=== PATIENT | female | born 1985 | race American Indian/Alaskan Native ===

== ENCOUNTER 2017-12-27 13:34 | Emergency (ER) | payer OTHER ==
[2017-12-27 14:25] VITALS: BP 128/49
[2017-12-27 14:49] LABS: Hematocrit 34.2 % (30.3-42.9); Hemoglobin 10.9 gm/dl (10.1-14.3); Mean Corpuscular HGB Conc 32 % (30-34); Mean Corpuscular Volume 76 fl (79-97); Platelet Count 134 K/mm3 (140-440); Red Blood Count 4.53 M/mm3 (3.65-5.03); Red Cell Distribution Width 16.1 % (13.2-15.2)
[2017-12-27 14:52] LABS: Mean Corpuscular Hemoglobin 24 pg (28-32)
[2017-12-27 16:25] LABS: HCG Qualitative,Urine Negative (Negative)
== END 2017-12-27 20:57 | disposition left against medical advice (07) ==
LOC: ED 13:34
DX: Z04.3 Encounter for examination and observation following other accident (principal); Z53.21 Procedure and treatment not carried out due to patient leaving prior to being seen by health care provider
CPT/HCPCS: 36415; 81025; 85027

== ENCOUNTER 2018-11-05 17:17 | Emergency (ER) | payer MEDICAID ==
[2018-11-05 17:24] VITALS: BP 108/74
[2018-11-05 17:46] LABS: HCG Qualitative,Urine Positive (Negative)
[2018-11-05 17:50] LABS: Bilirubin,Urine NEG (Negative); Blood,Urine NEG (Negative); Color,Urine Yellow (Yellow); Mucus,Urine 1+ /HPF; Protein,Urine <15 mg/dL mg/dL (Negative)
[2018-11-05 18:07] LABS: Hematocrit 39.5 % (30.3-42.9); Hemoglobin 13.3 gm/dl (10.1-14.3); Mean Corpuscular HGB Conc 34 % (30-34); Mean Corpuscular Volume 80 fl (79-97); Platelet Count 141 K/mm3 (140-440); Red Blood Count 4.96 M/mm3 (3.65-5.03); Red Cell Distribution Width 15.9 % (13.2-15.2)
[2018-11-05 18:19] LABS: BUN/Creatinine Ratio 10; Blood Urea Nitrogen 6 mg/dL (7-17); Calcium 9.2 mg/dL (8.4-10.2); Hemolysis Index 2
[2018-11-05] MEDS ORDERED: NACL 0.9% 1000 ML 1,000 ML IV ONE (18:35)
[2018-11-05] MEDS ORDERED: REGLAN IV ONE (18:35)
--- NOTE | 2018-11-05 18:41 | Emergency Department Report ---
HPI - General Chief Complaint: Nausea/Vomiting/Diarrhea Time Seen by Provider: 11/05/18 18:34 - HPI HPI: Room 33 The patient is a 33-year-old female presenting with a chief complaint of lower abdominal pain nausea and vomiting. Patient states she is but is not certain how far along she is. The patient states her last cycle occurred 09/15/2018. The patient states she has seen an TEACHER PHYSICALLY IMPAIRED but no ultrasound as yet been performed. The patient states for the past 3 weeks she's had low abdominal pain described as a pressure that has been intermittent. Patient also admits to intractable nausea and vomiting for the past 3 weeks. Patient denies vaginal bleeding but admits to subjective fever. Patient denies dysuria. The patient states drinking hot water helps with her abdominal pain Location: Gastrointestinal system, pelvis Duration: [See above] Quality: Nausea, pressure Severity: Moderate Modifying factors: [see above] Context: [see above] Mode of transportation: [not driving] ED Past Medical Hx - Past Medical History Previous Medical History?: No - Surgical History Past Surgical History?: No - Family History Family history: no significant - Social History Smoking Status: Never Smoker Substance Use Type: None (denies illicit drug use), Alcohol (occasionally prior to ) - Medications Home Medications: Home Medications Medication Instructions Recorded Confirmed Last Taken Type Metoclopramide [Reglan] 10 mg PO QID PRN #30 tab 11/05/18 Unknown Rx ED Review of Systems ROS: Stated complaint: UPSET STOMACH Other details as noted in HPI Constitutional: chills Eyes: denies: eye pain ENT: denies: throat pain Respiratory: no symptoms reported Cardiovascular: denies: chest pain Endocrine: no symptoms reported Gastrointestinal: abdominal pain, nausea, vomiting Genitourinary: denies: dysuria Musculoskeletal: denies: back pain Neurological: denies: headache Physical Exam - Physical Exam Vital Signs: Vital Signs 11/05/18 17:21 Temperature 98.8 F Pulse Rate 68 Respiratory 18 Rate Blood Pressure 108/74 O2 Sat by Pulse 99 Oximetry Physical Exam: GENERAL: The patient is well-developed well-nourished female sitting on stretcher not appearing to be in acute distress. [] HEENT: Normocephalic. Atraumatic. Extraocular motions are intact. Patient has moist mucous membranes. NECK: Supple. Trachea midline CHEST/LUNGS: Clear to auscultation. There is no respiratory distress noted. HEART/CARDIOVASCULAR: Regular. There is no tachycardia. There is no gallop rub or murmur. ABDOMEN: Abdomen is soft, with mild soreness to palpation in the midepigastric, left lower quadrant, superpubic region and right lower quadrant. There is no rebound or guarding. Patient has normal bowel sounds. There is no abdominal distention. SKIN: There is no rash. There is no edema. There is no diaphoresis. NEURO: The patient is awake, alert, and oriented. The patient is cooperative. The patient has normal speech MUSCULOSKELETAL: There is no evidence of acute injury. ED Course Vital Signs 11/05/18 17:21 Temperature 98.8 F Pulse Rate 68 Respiratory 18 Rate Blood Pressure 108/74 O2 Sat by Pulse 99 Oximetry - Reevaluation(s) Reevaluation #1: 11/05/18 20:57 Patient tolerating po ED Medical Decision Making - Lab Data Result diagrams: 11/05/18 17:44 11/05/18 17:44 Laboratory Tests 11/05/18 11/05/18 11/05/18 17:30 17:44 17:44 WBC 6.7 RBC 4.96 Hgb 13.3 Hct 39.5 MCV 80 MCH 27 L MCHC 34 RDW 15.9 H Plt Count 141 Sodium 135 L Potassium 3.8 Chloride 101.8 Carbon Dioxide 22 Anion Gap 15 BUN 6 L Creatinine 0.6 L Estimated GFR > 60 BUN/Creatinine Ratio 10 Glucose 86 Calcium 9.2 Total Bilirubin Direct Bilirubin Indirect Bilirubin AST ALT Alkaline Phosphatase Total Protein Albumin Albumin/Globulin Ratio Lipase HCG, Quant Urine Color Yellow Urine Turbidity Clear Urine pH 6.0 Ur Specific [place] 1.024 Urine Protein <15 mg/dl Urine Glucose (UA) Neg Urine Ketones 20 Urine Blood Neg Urine Nitrite Neg Ur Reducing Substances Not Reportable Urine Bilirubin Neg Urine Ictotest Not Reportable Urine Urobilinogen 2.0 Ur Leukocyte Esterase Neg Urine WBC (Auto) 1.0 Urine RBC (Auto) 6.0 U Epithel Cells (Auto) 4.0 Urine Mucus 1+ Urine HCG, Qual Positive A 11/05/18 11/05/18 17:44 17:44 WBC RBC Hgb Hct MCV MCH MCHC RDW Plt Count Sodium Potassium Chloride Carbon Dioxide Anion Gap BUN Creatinine Estimated GFR BUN/Creatinine Ratio Glucose Calcium Total Bilirubin 0.20 Direct Bilirubin < 0.2 Indirect Bilirubin 0.0 AST 22 ALT 24 Alkaline Phosphatase 80 Total Protein 8.1 Albumin 4.1 Albumin/Globulin Ratio 1.0 Lipase 25 HCG, Quant [id number] H Urine Color Urine Turbidity Urine pH Ur Specific [place] Urine Protein Urine Glucose (UA) Urine Ketones Urine Blood Urine Nitrite Ur Reducing Substances Urine Bilirubin Urine Ictotest Urine Urobilinogen Ur Leukocyte Esterase Urine WBC (Auto) Urine RBC (Auto) U Epithel Cells (Auto) Urine Mucus Urine HCG, Qual - Radiology Data Radiology results: report reviewed (pelvic ultrasound), image reviewed (pelvic ultrasound) [facility] [address] [place] [address] Ultrasound Report Signed Patient: MINAL MORRIS V MR#: [id number] : 1985 Acct:[id number] Age/Sex: 33 / F ADM Date: 11/05/18 Loc: ED Attending Dr: Ordering Physician: TORO HUITRON MD Date of Service: 11/05/18 Procedure(s): US OB transvaginal Accession Number(s): [id number] cc: TORO HUITRON MD FINAL REPORT EXAM: US OB TRANSVAGINAL HISTORY: , lower abdominal pain TECHNIQUE: Transvaginal grayscale, color flow and M-mode imaging of the pelvis was performed. Comparison: Transabdominal study also performed today. FINDINGS: The cervix is closed and unremarkable in appearance. There is demonstration of an intrauterine gestational sac with a yolk sac and pole. Estimated gestational age by measurements of crown-rump length is 7 weeks 5 days. heart rate is measured at 160 beats per minute by M-mode imaging. There is a small subchorionic collection that likely represents a subchorionic hemorrhage. No measurements are provided. The right ovary measures 4 centimeters x 2.7 centimeters x 3.4 centimeters and is unremarkable in appearance. The left ovary is not visualized. No free fluid is demonstrated in the pelvis. IMPRESSION: 1. Demonstration of a single living intrauterine gestation with estimated gestational age of 7 weeks 5 days by measurement of crown-rump length. 2. Probable small subchorionic hemorrhage. 3. The left ovary is not visualized. Transcribed By: ED Dictated By: RAFAEL WOODWARD MD Electronically Authenticated By: RAFAEL WOODWARD MD Signed Date/Time: 11/05/182017 DD/ 20 TD/TT: 11/05/182020 - Differential Diagnosis hyperemesis gravidarum, ectopic , UTI, round ligament pain Critical care attestation.: If time is entered above; I have spent that time in minutes in the direct care of this critically ill patient, excluding procedure time. ED Disposition Clinical Impression: Hyperemesis gravidarum, Subchorionic hemorrhage Disposition: TO HOME OR SELFCARE Is pt being admited?: No Does the pt Need Aspirin: No Condition: Stable Instructions: Hyperemesis Gravidarum (ED) Additional Instructions: Return to the emergency department immediately should you develop worsening symptoms, fever, inability to tolerate food or liquid or any other concerns. Prescriptions: Metoclopramide [Reglan] 10 mg PO QID PRN #30 tab PRN Reason: Nausea Referrals: ИВАН GARCIA MD [Primary Care Provider] - 3-5 Days your, TEACHER PHYSICALLY IMPAIRED [Other] - 3-5 Days Time of Disposition: 20:54
[2018-11-05 18:54] LABS: Alanine Aminotransferase 24 units/L (7-56); Albumin 4.1 g/dL (3.9-5)
[2018-11-05 18:57] LABS: Bilirubin,Direct < 0.2 mg/dL (0-0.2)
--- NOTE | 2018-11-05 20:15 | Ultrasound Report ---
FINAL REPORT EXAM: US OB <= 14 WEEKS FETUS HISTORY: , lower abdominal pain TECHNIQUE: Transabdominal grayscale and color-flow imaging of the pelvis was performed. Comparison: Transvaginal study also performed today FINDINGS: The uterus measures 9.2 centimeters x 7 centimeters by 8.8 centimeters in size. There is demonstration of an intrauterine gestational sac with pole. The ovaries are not visualized. No free fluid is demonstrated in the pelvis. IMPRESSION: 1. Demonstration of an intrauterine gestational sac with pole. Please see report of transvaginal study also performed today.
--- NOTE | 2018-11-05 20:18 | Ultrasound Report ---
FINAL REPORT EXAM: US OB TRANSVAGINAL HISTORY: , lower abdominal pain TECHNIQUE: Transvaginal grayscale, color flow and M-mode imaging of the pelvis was performed. Comparison: Transabdominal study also performed today. FINDINGS: The cervix is closed and unremarkable in appearance. There is demonstration of an intrauterine gestational sac with a yolk sac and pole. Estimated g estational age by measurements of crown-rump length is 7 weeks 5 days. heart rate is measured at 160 beats per minute by M-mode imaging. There is a small subchorionic collection that likely represents a subchorionic hemorrhage. No measure ments are provided. The right ovary measures 4 centimeters x 2.7 centimeters x 3.4 centimeters and is unremarkable in [place]. The left ovary is not visualized. No free fluid is demonstrated in the pelvis. IMPRESSION: 1. Demonstration of a single living intrauterine gestation with estimated gestational age of 7 weeks 5 days by measurement of crown-rump length. 2. Probable small subchorionic hemorrhage. 3. The left ovary is not visualized.
== END 2018-11-05 21:07 | disposition home or self-care (01) ==
LOC: ED 17:17
DX: O21.0 Mild hyperemesis gravidarum (principal); O20.8 Other hemorrhage in early pregnancy; Z3A.01 Less than 8 weeks gestation of pregnancy
CPT/HCPCS: 36415; 76801; 76817; 80048; 80076; 81001; 81025; 83690; 84702; 85027; 96361; 96374; 99284; J2765; J7030

== ENCOUNTER 2018-11-09 08:32 | Emergency (ER) | payer MEDICAID ==
[2018-11-09] MEDS ORDERED: ZOFRAN IV ONE ×2 (09:42→11:33)
[2018-11-09] MEDS ORDERED: D5NS 1,000 ML IV SCH (10:00)
[2018-11-09 10:01] LABS: Basophils # (Auto) 0.1 K/mm3 (0.0-0.1); Basophils % (Auto) 0.9 % (0.0-1.8); Eosinophils # (Auto) 0.1 K/mm3 (0.0-0.4); Eosinophils % (Auto) 2.2 % (0.0-4.3); Hematocrit 38.7 % (30.3-42.9); Hemoglobin 12.8 gm/dl (10.1-14.3); Lymphocytes # (Auto) 1.5 K/mm3 (1.2-5.4); Lymphocytes % (Auto) 21.8 % (13.4-35.0); Mean Corpuscular HGB Conc 33 % (30-34); Mean Corpuscular Volume 81 fl (79-97); Monocytes # (Auto) 0.4 K/mm3 (0.0-0.8); Monocytes % (Auto) 5.8 % (0.0-7.3); Platelet Count 136 K/mm3 (140-440); Red Blood Count 4.77 M/mm3 (3.65-5.03)
--- NOTE | 2018-11-09 10:15 | Emergency Department Report ---
ED N/V/D HPI - General Chief complaint: Nausea/Vomiting/Diarrhea Stated complaint: SICK Time Seen by Provider: 11/09/18 09:23 Source: patient Mode of arrival: Ambulatory Limitations: No Limitations - History of Present Illness Initial comments: 33-year-old female currently 8 weeks presents to the Hospital complaining of persistent nausea and vomiting. This is her sixth . She was seen here 4 days ago with similar symptoms. On October 2018 showing a single IUP 7 weeks 5 days with a small subchorionic hemorrhage. She was prescribed Reglan when necessary. Despite taking this medication should continue to have nausea and vomiting. She complains of generalized abdominal pain rated 10/10 intensity which is aching, constant, worse with palpation. No fever, melena hematochezia, hematemesis. Patient has history of gallstone rem oval but denies cholecystectomy. Patient does have a HEARING AID ASSISTANT cannot recall the name of the group. - Related Data Previous Rx's Medication Instructions Recorded Last Taken Type Metoclopramide [Reglan] 10 mg PO QID PRN #30 tab 11/05/18 Unknown Rx Ondansetron [Zofran Odt] 4 mg PO Q8HR PRN #20 tab.rapdis 11/09/18 Unknown Rx Allergies Allergy/AdvReac Type Severity Reaction Status Date / Time No Known Allergies Allergy Verified 11/05/18 17:21 ED Review of Systems ROS: Stated complaint: SICK Other details as noted in HPI Comment: All other systems reviewed and negative ED Past Medical Hx - Past Medical History Previous Medical History?: Yes Additional medical history: Child x 5 - Surgical History Past Surgical History?: Yes Additional Surgical History: Gallstone removal - Social History Smoking Status: Never Smoker Substance Use Type: Alcohol, Prescribed - Medications Home Medications: Home Medications Medication Instructions Recorded Confirmed Last Taken Type Metoclopramide [Reglan] 10 mg PO QID PRN #30 tab 11/05/18 Unknown Rx Ondansetron [Zofran Odt] 4 mg PO Q8HR PRN #20 tab.rapdis 11/09/18 Unknown Rx ED Physical Exam - General Limitations: No Limitations - Other Other exam information: General: No limitations, patient is alert in no acute distress Head exam: Atraumatic, normocephalic Eyes exam: Normal appearance ENT: Moist mucous membrane Neck exam: Normal inspection, full range of motion, no meningismus nontender Respiratory exam: Clear to auscultation bilateral, no wheezes, rales, crackles Cardiovascular: Normal rate and rhythm, normal heart sounds Abdomen: Soft, nondistended, generalized abdominal tenderness to palpation, with normal bowel sounds, no rebound, or guarding. Patient noted to be spitting into a vomit bag without actual vomiting. Extremity: Full range of motion normal inspection no deformity Back: Normal Inspection, full range of motion, no tenderness Neurologic: Alert, oriented x3, cranial nerves intact, no motor or sensory deficit Psychiatric: normal affect, normal mood Skin: Warm, dry, intact ED Course Vital Signs 11/09/18 11/09/18 08:34 12:03 Temperature 98.9 F Pulse Rate 81 Respiratory 18 18 Rate Blood Pressure 124/39 O2 Sat by Pulse 99 Oximetry ED Medical Decision Making - Lab Data Result diagrams: 11/09/18 09:50 11/09/18 09:50 Lab Results 11/09/18 11/09/18 11/09/18 Range/Units 09:50 09:50 09:50 WBC 6.7 (4.5-11.0) K/mm3 RBC 4.77 (3.65-5.03) M/mm3 Hgb 12.8 (10.1-14.3) gm/dl Hct 38.7 (30.3-42.9) % MCV 81 (79-97) fl MCH 27 L (28-32) pg MCHC 33 (30-34) % RDW 16.0 H (13.2-15.2) % Plt Count 136 L (140-440) K/mm3 Lymph % (Auto) 21.8 (13.4-35.0) % [place] % (Auto) 5.8 (0.0-7.3) % Eos % (Auto) 2.2 (0.0-4.3) % Baso % (Auto) 0.9 (0.0-1.8) % Lymph # 1.5 (1.2-5.4) K/mm3 [place] # 0.4 (0.0-0.8) K/mm3 Eos # 0.1 (0.0-0.4) K/mm3 Baso # 0.1 (0.0-0.1) K/mm3 Seg Neutrophils % 69.3 (40.0-70.0) % Seg Neutrophils # 4.6 (1.8-7.7) K/mm3 Sodium 136 L (137-145) mmol/L Potassium 3.6 (3.6-5.0) mmol/L Chloride 100.0 (98-107) mmol/L Carbon Dioxide 21 L (22-30) mmol/L Anion Gap 19 mmol/L BUN 6 L (7-17) mg/dL Creatinine 0.5 L (0.7-1.2) mg/dL Estimated GFR > 60 ml/min BUN/Creatinine Ratio 12 % Glucose 76 (65-100) mg/dL Calcium 8.8 (8.4-10.2) mg/dL Total Bilirubin 0.50 (0.1-1.2) mg/dL AST 18 (5-40) units/L ALT 20 (7-56) units/L Alkaline Phosphatase 73 (35-129) units/L Total Protein 7.3 (6.3-8.2) g/dL Albumin 3.8 L (3.9-5) g/dL Albumin/Globulin Ratio 1.1 % Lipase 30 (13-60) units/L Urine Color (Yellow) Urine Turbidity (Clear) Urine pH (5.0-7.0) Ur Specific [place] (1.003-1.030) Urine Protein (Negative) mg/dL Urine Glucose (UA) (Negative) mg/dL Urine Ketones (Negative) mg/dL Urine Blood (Negative) Urine Nitrite (Negative) Urine Bilirubin (Negative) Urine Urobilinogen (<2.0) mg/dL Ur Leukocyte Esterase (Negative) Urine WBC (Auto) (0.0-6.0) /HPF Urine RBC (Auto) (0.0-6.0) /HPF U Epithel Cells (Auto) (0-13.0) /HPF Urine Bacteria (Auto) (Negative) /HPF Urine Mucus /HPF 11/09/18 Range/Units 11:13 WBC (4.5-11.0) K/mm3 RBC (3.65-5.03) M/mm3 Hgb (10.1-14.3) gm/dl Hct (30.3-42.9) % MCV (79-97) fl MCH (28-32) pg MCHC (30-34) % RDW (13.2-15.2) % Plt Count (140-440) K/mm3 Lymph % (Auto) (13.4-35.0) % [place] % (Auto) (0.0-7.3) % Eos % (Auto) (0.0-4.3) % Baso % (Auto) (0.0-1.8) % Lymph # (1.2-5.4) K/mm3 [place] # (0.0-0.8) K/mm3 Eos # (0.0-0.4) K/mm3 Baso # (0.0-0.1) K/mm3 Seg Neutrophils % (40.0-70.0) % Seg Neutrophils # (1.8-7.7) K/mm3 Sodium (137-145) mmol/L Potassium (3.6-5.0) mmol/L Chloride (98-107) mmol/L Carbon Dioxide (22-30) mmol/L Anion Gap mmol/L BUN (7-17) mg/dL Creatinine (0.7-1.2) mg/dL Estimated GFR ml/min BUN/Creatinine Ratio % Glucose (65-100) mg/dL Calcium (8.4-10.2) mg/dL Total Bilirubin (0.1-1.2) mg/dL AST (5-40) units/L ALT (7-56) units/L Alkaline Phosphatase (35-129) units/L Total Protein (6.3-8.2) g/dL Albumin (3.9-5) g/dL Albumin/Globulin Ratio % Lipase (13-60) units/L Urine Color Yellow (Yellow) Urine Turbidity Clear (Clear) Urine pH 6.0 (5.0-7.0) Ur Specific [place] 1.026 (1.003-1.030) Urine Protein <15 mg/dl (Negative) mg/dL Urine Glucose (UA) >=500 (Negative) mg/dL Urine Ketones 80 (Negative) mg/dL Urine Blood Neg (Negative) Urine Nitrite Neg (Negative) Urine Bilirubin Neg (Negative) Urine Urobilinogen < 2.0 (<2.0) mg/dL Ur Leukocyte Esterase Neg (Negative) Urine WBC (Auto) 3.0 (0.0-6.0) /HPF Urine RBC (Auto) 3.0 (0.0-6.0) /HPF U Epithel Cells (Auto) 4.0 (0-13.0) /HPF Urine Bacteria (Auto) 1+ (Negative) /HPF Urine Mucus 1+ /HPF - Medical Decision Making Patient did have urine output after 1 L D5NS. UA reveals dehydration with ketosis without signs of infection. Otherwise unremarkable. Patient denies vaginal bleeding. She is tolerating by mouth intake after treatment with Zofran. She'll be discharged home with symptomatic treatment and encouraged to follow-up with her HEARING AID ASSISTANT. She was offered additional IV fluid but declined and prefers to be discharged with meds - Differential Diagnosis gastroenteritis, hyperemesis, UTI, infection Critical Care Time: No Critical care attestation.: If time is entered above; I have spent that time in minutes in the direct care of this critically ill patient, excluding procedure time. ED Disposition Clinical Impression: Vomiting during Disposition: DC-01 TO HOME OR SELFCARE Is pt being admited?: No Does the pt Need Aspirin: No Condition: Stable Instructions: Hyperemesis Gravidarum (ED) Additional Instructions: Take the medication as prescribed. Take Tylenol as needed for pain. Follow up with your doctor. Return if symptoms worsen as indicated by your discharge instructions Prescriptions: Ondansetron [Zofran Odt] 4 mg PO Q8HR PRN #20 tab.rapdis PRN Reason: Nausea And Vomiting Referrals: your, hop worker MD [Other] - 3-5 Days Time of Disposition: 12:37
[2018-11-09 10:23] LABS: Alanine Aminotransferase 20 units/L (7-56); Albumin 3.8 g/dL (3.9-5); BUN/Creatinine Ratio 12; Blood Urea Nitrogen 6 mg/dL (7-17); Calcium 8.8 mg/dL (8.4-10.2); Hemolysis Index 1
[2018-11-09] MEDS ORDERED: TYLENOL PO ONE (11:33)
[2018-11-09 11:45] LABS: Bacteria,Urine 1+ /HPF (Negative); Bilirubin,Urine NEG (Negative); Blood,Urine NEG (Negative); Color,Urine Yellow (Yellow); Mucus,Urine 1+ /HPF; Protein,Urine <15 mg/dL mg/dL (Negative); Urobilinogen,Urine < 2.0 mg/dL (<2.0)
[2018-11-10 13:43] VITALS: BP 124/39
== END 2018-11-09 13:13 | disposition home or self-care (01) ==
LOC: ED 08:32
DX: O21.9 Vomiting of pregnancy, unspecified (principal); Z3A.01 Less than 8 weeks gestation of pregnancy; E86.0 Dehydration
CPT/HCPCS: 36415; 80053; 81001; 83690; 85025; 96361; 96374; 96376; 99283; J2405; J7042

== ENCOUNTER 2018-11-15 15:45 | Emergency (ER) | payer MEDICAID ==
[2018-11-15] MEDS ORDERED: NACL 0.9% 1000 ML 1,000 ML IV ONE (16:19)
[2018-11-15] MEDS ORDERED: ZOFRAN IV ONE (16:21)
[2018-11-15] MEDS ORDERED: SUBLIMAZE IV ONE (16:36)
[2018-11-15 16:40] LABS: Basophils % (Auto) 0.4 % (0.0-1.8); Eosinophils # (Auto) 0.1 K/mm3 (0.0-0.4); Hematocrit 38.3 % (30.3-42.9); Hemoglobin 12.8 gm/dl (10.1-14.3); Lymphocytes # (Auto) 2.1 K/mm3 (1.2-5.4); Lymphocytes % (Auto) 29.6 % (13.4-35.0); Mean Corpuscular HGB Conc 33 % (30-34); Mean Corpuscular Volume 81 fl (79-97); Monocytes # (Auto) 0.4 K/mm3 (0.0-0.8); Monocytes % (Auto) 6.3 % (0.0-7.3); Platelet Count 145 K/mm3 (140-440); Red Blood Count 4.71 M/mm3 (3.65-5.03); Red Cell Distribution Width 15.5 % (13.2-15.2)
--- NOTE | 2018-11-15 16:44 | Emergency Department Report ---
Blank Doc - Documentation Documentation: 33 y o female presents presents with abd pain with n/v at approx 10 we eks gestation. abd started 3 days ago, no vag bleed LABS ordered\ NS U/S completed at last visit here, wnl
[2018-11-15 16:52] LABS: BUN/Creatinine Ratio 13; Blood Urea Nitrogen 5 mg/dL (7-17); Calcium 9.1 mg/dL (8.4-10.2); Hemolysis Index 0
--- NOTE | 2018-11-15 18:42 | Ultrasound Report ---
FINAL REPORT EXAM: TRANSVAGINAL US OBSTETRIC HISTORY: VAG SPOTTING TECHNIQUE: Ultrasound pelvis transabdominal and transvaginal PRIORS: None. FINDINGS: There is gestational sac within the uterus. There is pole present crown-rump 5 centimeters merlin esponding to estimated gestational age 9 weeks 1 day Estimated date of delivery June 19, 2019 cardiac activity present heart rate is 166 beats per minute 0.3 x 1.1 x 0.0 centimeter hypoechoic focus seen adjacent to the gestational sac consistent with a sm all subchorionic hemorrhage Right ovary 5.0 x 1.9 x 4.5 centimeters Left ovary is 3.4 x 1.5 x 2.2 centimeters Note is made of a 2.9 centimeter right ovarian cyst No free fluid seen in the cul-de-sac IMPRESSION: Single live intrauterine gestation estimated at 9 weeks 1 days with a small subchorionic hemorrhage
--- NOTE | 2018-11-15 18:51 | Ultrasound Report ---
FINAL REPORT EXAM: OB US < 14 WKS SINGLE FETUS HISTORY: VAG BLEEDING TECHNIQUE: PRIORS: None. FINDINGS: There is gestational sac within the uterus. There is pole present crown-rump 5 centimeters merlin esponding to estimated gestational age 9 weeks 1 day Estimated date of delivery June 19, 2019 cardiac activity present heart rate is 166 beats per minute 0.3 x 1.1 x 0.0 centimeter hypoechoic focus seen adjacent to the gestational sac consistent with a sm all subchorionic hemorrhage Right ovary 5.0 x 1.9 x 4.5 centimeters Left ovary is 3.4 x 1.5 x 2.2 centimeters Note is made of a 2.9 centimeter right ovarian cyst No free fluid seen in the cul-de-sac IMPRESSION: Single live intrauterine gestation estimated at 9 weeks 1 days with a small subchorionic hemorrhage
--- NOTE | 2018-11-15 19:41 | Emergency Department Report ---
ED General Adult HPI - General Chief complaint: Abdominal Pain Stated complaint: ABD/BODY PAIN/ 10WKS PREG Time Seen by Provider: 11/15/18 16:16 Source: patient Mode of arrival: Ambulatory Limitations: No Limitations - History of Present Illness Initial comments: Patient is a 32-year-old female who presents with lower abdominal pain nausea vomiting. Patient symptoms have been going on for the last 2 days. She says her abdominal pain is a 5 out 10 as a sore type of pain vomiting makes it worse and nothing makes it better. Patient denies having any vaginal bleeding or any vaginal discharge. Severity scale (0 -10): 3 - Related Data Previous Rx's Medication Instructions Recorded Last Taken Type Metoclopramide [Reglan] 10 mg PO QID PRN #30 tab 11/05/18 Unknown Rx Ondansetron [Zofran Odt] 4 mg PO Q8HR PRN #20 tab.rapdis 11/09/18 Unknown Rx Metoclopramide [Reglan] 10 mg PO TID PRN #21 tab 11/15/18 Unknown Rx diphenhydrAMINE [Benadryl CAP] 50 mg PO QHS PRN #30 capsule 11/15/18 Unknown Rx Allergies Allergy/AdvReac Type Severity Reaction Status Date / Time No Known Allergies Allergy Verified 11/15/18 16:16 ED Review of Systems ROS: Stated complaint: ABD/BODY PAIN/ 10WKS PREG Other details as noted in HPI Constitutional: denies: chills, fever Eyes: denies: eye pain, eye discharge, vision change ENT: denies: ear pain, throat pain Respiratory: denies: cough, shortness of breath, wheezing Cardiovascular: denies: chest pain, palpitations Endocrine: no symptoms reported Gastrointestinal: abdominal pain, nausea, vomiting. denies: diarrhea Genitourinary: denies: urgency, dysuria, discharge Musculoskeletal: denies: back pain, joint swelling, arthralgia Skin: denies: rash, lesions Neurological: denies: headache, weakness, paresthesias Psychiatric: denies: anxiety, depression Hematological/Lymphatic: denies: easy bleeding, easy bruising ED Past Medical Hx - Past Medical History Previous Medical History?: No Additional medical history: Child x 5 - Surgical History Past Surgical History?: Yes Additional Surgical History: Gallstone removal - Social History Smoking Status: Never Smoker - Medications Home Medications: Home Medications Medication Instructions Recorded Confirmed Last Taken Type Metoclopramide [Reglan] 10 mg PO QID PRN #30 tab 11/05/18 Unknown Rx Ondansetron [Zofran Odt] 4 mg PO Q8HR PRN #20 tab.rapdis 11/09/18 Unknown Rx Metoclopramide [Reglan] 10 mg PO TID PRN #21 tab 11/15/18 Unknown Rx diphenhydrAMINE [Benadryl CAP] 50 mg PO QHS PRN #30 capsule 11/15/18 Unknown Rx ED Physical Exam - General Limitations: No Limitations General appearance: alert, in no apparent distress - Head Head exam: Present: atraumatic, normocephalic - Eye Eye exam: Present: normal appearance - ENT ENT exam: Present: mucous membranes moist - Neck Neck exam: Present: normal inspection - Respiratory Respiratory exam: Present: normal lung sounds bilaterally. Absent: respiratory distress - Cardiovascular Cardiovascular Exam: Present: regular rate, normal rhythm. Absent: systolic murmur, diastolic murmur, rubs, gallop - GI/Abdominal GI/Abdominal exam: Present: soft, normal bowel sounds - Extremities Exam Extremities exam: Present: normal inspection - Back Exam Back exam: Present: normal inspection - Neurological Exam Neurological exam: Present: alert, oriented X3 - Psychiatric Psychiatric exam: Present: normal affect, normal mood - Skin Skin exam: Present: warm, dry, intact, normal color. Absent: rash ED Course Vital Signs 11/15/18 11/15/18 11/15/18 16:17 16:55 18:30 Temperature 99.4 F 98.3 F Pulse Rate 68 79 Respiratory 18 18 17 Rate Blood Pressure 107/43 Blood Pressure 110/70 [Left] O2 Sat by Pulse 99 99 99 Oximetry ED Medical Decision Making - Lab Data Result diagrams: 11/15/18 16:31 11/15/18 16:31 Lab Results 11/15/18 11/15/18 11/15/18 Range/Units 16:31 16:31 16:40 WBC 7.0 (4.5-11.0) K/mm3 RBC 4.71 (3.65-5.03) M/mm3 Hgb 12.8 (10.1-14.3) gm/dl Hct 38.3 (30.3-42.9) % MCV 81 (79-97) fl MCH 27 L (28-32) pg MCHC 33 (30-34) % RDW 15.5 H (13.2-15.2) % Plt Count 145 (140-440) K/mm3 Lymph % (Auto) 29.6 (13.4-35.0) % Isabella % (Auto) 6.3 (0.0-7.3) % Eos % (Auto) 2.0 (0.0-4.3) % Baso % (Auto) 0.4 (0.0-1.8) % Lymph # 2.1 (1.2-5.4) K/mm3 Isabella # 0.4 (0.0-0.8) K/mm3 Eos # 0.1 (0.0-0.4) K/mm3 Baso # 0.0 (0.0-0.1) K/mm3 Seg Neutrophils % 61.7 (40.0-70.0) % Seg Neutrophils # 4.3 (1.8-7.7) K/mm3 Sodium 138 (137-145) mmol/L Potassium 3.2 L (3.6-5.0) mmol/L Chloride 101.9 (98-107) mmol/L Carbon Dioxide 24 (22-30) mmol/L Anion Gap 15 mmol/L BUN 5 L (7-17) mg/dL Creatinine 0.4 L (0.7-1.2) mg/dL Estimated GFR > 60 ml/min BUN/Creatinine Ratio 13 % Glucose 81 (65-100) mg/dL Calcium 9.1 (8.4-10.2) mg/dL HCG, Quant [id number] H (0-4) mIU/mL - Radiology Data Radiology results: report reviewed, image reviewed Patient has a single live intrauterine at 9 weeks and 1 day with a small subchorionic hemorrhage - Medical Decision Making Medical diagnosis: Differential medical diagnosis: Gastritis, electrolyte abnormality I will get CBC, BMP, ultrasound and IV pain medicine and IV antiemetic medication Patient's ultrasound and blood work is unremarkable she is feeling better I will discharge patient home. Critical care attestation.: If time is entered above; I have spent that time in minutes in the direct care of this critically ill patient, excluding procedure time. ED Disposition Clinical Impression: Vomiting during , Lower abdominal pain Subchorionic hemorrhage Qualifiers: Fetus number: single or unspecified fetus Trimester: first trimester Qualified Code(s): O41.8X10 - Other specified disorders of amniotic fluid and membranes, first trimester, not applicable or unspecified; O46.8X1 - Other antepartum hemorrhage, first trimester Disposition: DC-01 TO HOME OR SELFCARE Is pt being admited?: No Does the pt Need Aspirin: No Condition: Stable Instructions: Abdominal Pain (ED) Prescriptions: diphenhydrAMINE [Benadryl CAP] 50 mg PO QHS PRN #30 capsule PRN Reason: Insomnia Metoclopramide [Reglan] 10 mg PO TID PRN #21 tab PRN Reason: Nausea Referrals: CHAPARRO MELGAR MD [Other] - 3-5 Days
[2018-11-15 20:04] VITALS: BP 99/47
== END 2018-11-15 20:03 | disposition home or self-care (01) ==
LOC: ED 15:45
DX: O41.8X10 Other specified disorders of amniotic fluid and membranes, first trimester, not applicable or unspecified (principal); O46.8X1 Other antepartum hemorrhage, first trimester; O21.8 Other vomiting complicating pregnancy; Z3A.09 9 weeks gestation of pregnancy
CPT/HCPCS: 36415; 76801; 76817; 80048; 84702; 85025; 96361; 96374; 96375; 99284; J2405; J3010; J7030

== ENCOUNTER 2018-12-07 18:18 | Emergency (ER) | payer SELFPAY | END 2018-12-07 20:00 | disposition left against medical advice (07) | LOC: ED 18:18 ==

== ENCOUNTER 2019-08-04 17:36 | Emergency (ER) | payer SELFPAY ==
--- NOTE | 2019-08-04 19:02 | Emergency Department Report ---
Blank Doc - Documentation Documentation: 33-year-old female that presents with back and pelvic pain. Stated is but denies how far along. Denies any vaginal bleeding. This initial assessment/diagnostic orders/clinical plan/treatment(s) is/are subject to change based on patient's health status, clinical progression and re- assessment by fellow clinical providers in the ED. Further treatment and workup at subsequent clinical providers discretion. Patient/guardians urged not to elope from the ED as their condition may be serious if not clinically assessed and managed. Initial orders include: 1- Patient sent to [facility] for further evaluation and treatment 2- labs 3- UA 4- US OB
[2019-08-04 19:59] LABS: Bilirubin,Urine NEG (Negative); Blood,Urine SM (Negative); Color,Urine Yellow (Yellow); Mucus,Urine 1+ /HPF; Protein,Urine <15 mg/dL mg/dL (Negative); Urobilinogen,Urine < 2.0 mg/dL (<2.0)
--- NOTE | 2019-08-04 20:08 | Ultrasound Report ---
Transabdominal and transvaginal OB pelvic ultrasound INDICATION / CLINICAL INFORMATION: Pelvic pain for 2 days. COMPARISON: None available. FINDINGS: Transabdominal: The uterus measures 8.0 x 5.0 x 4.7 cm. The endometrial stripe measures 4.5 mm AP. Th e endometrial cavity is empty. The right ovary measures 4.5 x 3.2 x 3.4 cm and contains a 2.7 cm cyst which is likely physiologic. There is normal blood flow to the right ovary on Doppler exam. The left ovary measures 2.7 x 1.6 x 2.2 cm and demonstrates normal blood flow on Doppler exam. I see no evide nce of an extraovarian mass or free fluid. Transvaginal: There is no evidence of an intrauterine . No fibroids are seen. There are smal l nabothian cysts in the cervix. There is a 2.7 cm simple appearing cyst in the right ovary. There is a mild left hydrosalpinx. There is trace free fluid in the cul-de-sac. I see no evidence of an extra ovarian mass. IMPRESSION: 1. No evidence of intrauterine or extrauterine . 2. 2.7 cm follicular cyst in the right ovary. 3. Mild left hydrosalpinx. Signer Name: Fabian Hylton MD Signed: 08/04/2019 8:04 PM Workstation Name: [id number]
--- NOTE | 2019-08-04 22:28 | Emergency Department Report ---
ED General Adult HPI - General Chief complaint: Back Pain/Injury Stated complaint: FEELING SICK Time Seen by Provider: 08/04/19 19:01 Source: patient, RN notes reviewed Mode of arrival: Ambulatory Limitations: No Limitations - History of Present Illness Initial comments: During the history and physical, I am barrel straightener and escorted by nurse Radha Mortensen This is a 33-year-old female. This patient is not known to this provider previously. The patient presents to the ER with multiple complaints. Her first complaint is right-sided thoracic wall pain, achy in nature, increases with palpation and deep inspiration, decreases with rest. Patient reports that the pain is reproducible, and that she does a lot of heavy lifting for work. She denies recent surgery, travel, oral contraceptive use, immobilization, leg pain and leg swelling. She endorses a dry cough. She endorses a secondary complaint of confirmation of outpatient confirmed . Patient reports that she's had a few weeks of lower abdominal cramping. The cramping is intermittent, and does not radiate anywhere. No fevers, vomiting, diarrhea, constipation. There is no right lower quadrant pain. There are no urinary symptoms. She also endorses subacute/chronic paralumbar back pain which does not radiate anywhere. She states that she's had a positive outpatient home test, and she is seeking confirmation. -: Gradual, days(s) Location: back, abdomen, right (thorax) Radiation: other Quality: other Consistency: other Improves with: other Worsens with: other Associated Symptoms: other - Related Data Previous Rx's Medication Instructions Recorded Last Taken Type Metoclopramide [Reglan] 10 mg PO QID PRN #30 tab 11/05/18 Unknown Rx Ondansetron [Zofran Odt] 4 mg PO Q8HR PRN #20 tab.rapdis 11/09/18 Unknown Rx Metoclopramide [Reglan] 10 mg PO TID PRN #21 tab 11/15/18 Unknown Rx diphenhydrAMINE [Benadryl CAP] 50 mg PO QHS PRN #30 capsule 11/15/18 Unknown Rx Acetaminophen [Non-Aspirin Extra 500 mg PO Q6HR PRN #30 tablet 08/04/19 Unknown Rx Strength] Dian Root [Dian] 250 mg PO QID PRN #30 capsule 08/04/19 Unknown Rx Vit-Fe Fumar-FA [ 1 tab PO QDAY #30 tablet 08/04/19 Unknown Rx Vitamin] Allergies Allergy/AdvReac Type Severity Reaction Status Date / Time No Known Allergies Allergy Verified 11/15/18 16:16 ED Review of Systems ROS: Stated complaint: FEELING SICK Other details as noted in HPI Constitutional: denies: fever Eyes: denies: eye discharge ENT: denies: congestion Respiratory: cough. denies: shortness of breath, wheezing Cardiovascular: denies: chest pain, syncope Gastrointestinal: abdominal pain Musculoskeletal: back pain Neurological: denies: weakness Hematological/Lymphatic: denies: easy bleeding ED Past Medical Hx - Past Medical History Previous Medical History?: No Additional medical history: Child x 5 - Surgical History Additional Surgical History: Gallstone removal - Social History Smoking Status: Never Smoker Substance Use Type: Alcohol - Medications Home Medications: Home Medications Medication Instructions Recorded Confirmed Last Taken Type Metoclopramide [Reglan] 10 mg PO QID PRN #30 tab 11/05/18 Unknown Rx Ondansetron [Zofran Odt] 4 mg PO Q8HR PRN #20 tab.rapdis 11/09/18 Unknown Rx Metoclopramide [Reglan] 10 mg PO TID PRN #21 tab 11/15/18 Unknown Rx diphenhydrAMINE [Benadryl CAP] 50 mg PO QHS PRN #30 capsule 11/15/18 Unknown Rx Acetaminophen [Non-Aspirin Extra 500 mg PO Q6HR PRN #30 tablet 08/04/19 Unknown Rx Strength] Dian Root [Dian] 250 mg PO QID PRN #30 capsule 08/04/19 Unknown Rx Vit-Fe Fumar-FA [ 1 tab PO QDAY #30 tablet 08/04/19 Unknown Rx Vitamin] ED Physical Exam - General Limitations: No Limitations, Other (during history and physical examination, barrel straightener/escorted by nurse Radha Mortensen) General appearance: alert, in no apparent distress, obese - Head Head exam: Present: atraumatic, normocephalic - Eye Eye exam: Present: normal appearance, EOMI. Absent: nystagmus - ENT ENT exam: Present: normal exam, normal orophraynx, mucous membranes moist, normal external ear exam - Neck Neck exam: Present: normal inspection, full ROM. Absent: tenderness, meningismus - Respiratory Respiratory exam: Present: normal lung sounds bilaterally, chest wall tenderness, other (there is reproducible right sided hemithorax tenderness, without redness, pus or streaking). Absent: respiratory distress - Cardiovascular Cardiovascular Exam: Present: regular rate, normal rhythm, normal heart sounds. Absent: bradycardia, tachycardia, irregular rhythm, systolic murmur, diastolic murmur, rubs, gallop - GI/Abdominal GI/Abdominal exam: Present: soft, normal bowel sounds. Absent: distended, tenderness, rebound, rigid, pulsatile mass - Extremities Exam Extremities exam: Present: normal inspection, full ROM, other (2+ pulses noted in the bilateral upper, lower extremities. There is no long bone tenderness. Musculoskeletal compartments are soft. The pelvis is stable.). Absent: pedal edema, calf tenderness - Back Exam Back exam: Present: normal inspection, full ROM. Absent: tenderness, CVA tenderness (R), CVA tenderness (L), paraspinal tenderness, vertebral tenderness - Neurological Exam Neurological exam: Present: alert, normal gait, other (there is no facial droop. The tongue is midline. Extraocular movements are intact bilaterally. Patient speaking in full complete sentences. Shoulder shrug is intact bilaterally. Hearing is grossly intact bilaterally. Visual acuity intact to finger counting and color perception at a close distance. 5/5 strength 4 extremities. Sensation intact to light touch in 4 extremities.). Absent: motor sensory deficit - Psychiatric Psychiatric exam: Present: normal affect, normal mood - Skin Skin exam: Present: warm, dry, intact, normal color. Absent: rash ED Course Vital Signs 08/04/19 19:01 Temperature 97.9 F Pulse Rate 69 Respiratory 18 Rate Blood Pressure 110/68 O2 Sat by Pulse 100 Oximetry ED Medical Decision Making - Lab Data Vital Signs 08/04/19 19:01 Temperature 97.9 F Pulse Rate 69 Respiratory 18 Rate Blood Pressure 110/68 O2 Sat by Pulse 100 Oximetry Lab Results 08/04/19 08/04/19 Range/Units 19:40 Unknown HCG, Quant 602.9 H (0-4) mIU/mL Urine Color Yellow (Yellow) Urine Turbidity Clear (Clear) Urine pH 5.0 (5.0-7.0) Ur Specific [place] 1.023 (1.003-1.030) Urine Protein <15 mg/dl (Negative) mg/dL Urine Glucose (UA) Neg (Negative) mg/dL Urine Ketones 20 (Negative) mg/dL Urine Blood Sm (Negative) Urine Nitrite Pos (Negative) Urine Bilirubin Neg (Negative) Urine Urobilinogen < 2.0 (<2.0) mg/dL Ur Leukocyte Esterase Tr (Negative) Urine WBC (Auto) 2.0 (0.0-6.0) /HPF Urine RBC (Auto) 3.0 (0.0-6.0) /HPF U Epithel Cells (Auto) 1.0 (0-13.0) /HPF Urine Mucus 1+ /HPF - Radiology Data Radiology results: report reviewed, image reviewed Print Report Referring Physician: ROBYN CUNHA Patient Name: MINAL MORRIS Date of : 1985 Sex: Female Report Date: 2019-08-04 Report Status: Finalized Findings [facility] [address] [place] [address] Ultrasound Report Signed Patient: MINAL MORRIS V MR#: [id number] : 1985 Acct:[id number] Age/Sex: 33 / F ADM Date: 08/04/19 Loc: ED Attending Dr: Ordering Physician: ROBYN CUNHA NP Date of Service: 08/04/19 Procedure(s): US OB transvaginal Accession Number(s): [id number] cc: ROBYN CUNHA NP Transabdominal and transvaginal OB pelvic ultrasound INDICATION / CLINICAL INFORMATION: Pelvic pain for 2 days. COMPARISON: None available. FINDINGS: Transabdominal: The uterus measures 8.0 x 5.0 x 4.7 cm. The endometrial stripe measures 4.5 mm AP. The endometrial cavity is empty. The right ovary measures 4.5 x 3.2 x 3.4 cm and contains a 2.7 cm cyst which is likely physiologic. There is normal blood flow to the right ovary on Doppler exam. The left ovary measures 2.7 x 1.6 x 2.2 cm and demonstrates normal blood flow on Doppler exam. I see no evidence of an extraovarian mass or free fluid. Transvaginal: There is no evidence of an intrauterine . No fibroids are seen. There are small nabothian cysts in the cervix. There is a 2.7 cm simple appearing cyst in the right ovary. There is a mild left hydrosalpinx. There is trace free fluid in the cul-de-sac. I see no evidence of an extraovarian mass. IMPRESSION: 1. No evidence of intrauterine or extrauterine . 2. 2.7 cm follicular cyst in the right ovary. 3. Mild left hydrosalpinx. Signer Name: Fabian Hylton MD Signed: 08/04/2019 8:04 PM Workstation Name: [id number] Transcribed By: RT Dictated By: Fabian Hylton MD Electronically Authenticated By: Fabian Hylton MD Signed Date/Time: 08/04/192003 - Medical Decision Making Differential diagnosis, including not limited to: Musculoskeletal hemithorax pain, confirmation of test, urinary tract infection, constipation, musculoskeletal pain Assessment and plan: 33-year-old female who does a lot of heavy lifting for work, not tachycardic, not tachypneic, not hypoxic, no lower extremity evidence of DVT, no endorsement of chest pain or exertional shortness of breath, reproducible left-sided hemithorax pain, which secondary complaint of request for test confirmation. She is afebrile with reassuring vital signs. Urinalysis is reviewed and appreciated, does not demonstrate bacteriuria. Ultrasound does not demonstrate intrauterine . Quantitative hCG slightly greater than 600. Upon my evaluation, patient smiling and laughing in her examination table, does not appear to be in any acute distress. The patient does not appear to have an emergent medical condition at this time. She'll need to follow up with outpatient primary care and her [facility]. She can take [id number] Tylenol as needed for pain. Critical care attestation.: If time is entered above; I have spent that time in minutes in the direct care of this critically ill patient, excluding procedure time. ED Disposition Clinical Impression: test positive Back pain, thoracic Qualifiers: Chronicity: unspecified Back pain laterality: right Qualified Code(s): M54.6 - Pain in thoracic spine Disposition: DC-01 TO HOME OR SELFCARE Is pt being admited?: No Does the pt Need Aspirin: No Condition: Stable Additional Instructions: Rest, avoid heavy lifting, and avoid strenuous physical activity. Patient may alternate ice packs, heat packs as needed for the right thoracic wall pain. Patient may take [id number] Tylenol, 500 mg, every 4-6 hours as needed for pain. Maximum daily dose of Tylenol is 2 g per 24 hours. Do not take Motrin, ibuprofen, Naprosyn, Aleve. Recommend follow-up in 2 days for repeat quantitative hCG/ blood test. Patient may follow-up with the primary care doctor, [facility] physician, or return to this emergency room for repeat blood test. Recommend avoidance of heavy lifting, and abstinence from sexual activity. Please return to the emergency room right away with new, worsened, different symptoms, or symptoms not present on the initial emergency room evaluation. Follow-up with an [facility] doctor as soon as possible to initiate outpatient care. Referrals: [facility] [Provider Group] - 3-5 Days [facility] [Provider Group] - 3-5 Days [facility] [Provider Group] - 3-5 Days
[2019-08-04 23:07] VITALS: BP 126/47
== END 2019-08-04 22:55 | disposition home or self-care (01) ==
LOC: ED 17:36
DX: Z32.01 Encounter for pregnancy test, result positive (principal); M54.6 Pain in thoracic spine; Z79.899 Other long term (current) drug therapy
CPT/HCPCS: 36415; 76801; 76817; 81001; 84702; 99284

== ENCOUNTER 2020-07-16 15:40 | Emergency (ER) | payer SELFPAY ==
[2020-07-16 16:51] LABS: Basophils # (Auto) 0.1 K/mm3 (0.0-0.1); Basophils % (Auto) 0.8 % (0.0-1.8); Eosinophils # (Auto) 0.1 K/mm3 (0.0-0.4); Eosinophils % (Auto) 1.3 % (0.0-4.3); Hematocrit 39.7 % (30.3-42.9); Hemoglobin 13.3 gm/dl (10.1-14.3); Lymphocytes # (Auto) 2.2 K/mm3 (1.2-5.4); Lymphocytes % (Auto) 26.7 % (13.4-35.0); Mean Corpuscular HGB Conc 34 % (30-34); Mean Corpuscular Volume 87 fl (79-97); Monocytes # (Auto) 0.6 K/mm3 (0.0-0.8); Platelet Count 147 K/mm3 (140-440); Red Blood Count 4.56 M/mm3 (3.65-5.03); Red Cell Distribution Width 13.2 % (13.2-15.2)
[2020-07-16 17:08] LABS: Alanine Aminotransferase 11 units/L (7-56); BUN/Creatinine Ratio 14; Blood Urea Nitrogen 7 mg/dL (7-17); Calcium 8.8 mg/dL (8.4-10.2); Hemolysis Index 5
[2020-07-16 17:34] LABS: Bacteria,Urine 4+ /HPF (Negative); Bilirubin,Urine NEG (Negative); Blood,Urine SM (Negative); Color,Urine Yellow (Yellow); Hyaline Casts,Urine 4 /LPF; Mucus,Urine 3+ /HPF; Protein,Urine <15 mg/dL mg/dL (Negative)
[2020-07-16 17:35] LABS: HCG Qualitative,Urine Positive (Negative)
== END 2020-07-16 17:15 | disposition left against medical advice (07) ==
LOC: ED 15:40
DX: O26.899 Other specified pregnancy related conditions, unspecified trimester (principal); R10.9 Unspecified abdominal pain; Z53.21 Procedure and treatment not carried out due to patient leaving prior to being seen by health care provider
CPT/HCPCS: 36415; 80053; 81001; 81025; 85025

== ENCOUNTER 2020-08-20 15:55 | Emergency (ER) | payer SELFPAY ==
--- NOTE | 2020-08-20 16:55 | Event Note ---
ED Screening Note Date of service: 08/20/20 Time: 16:54 ED Screening Note: 34-year-old -[place] female states that she is 2 months and has been dizzy spotting abdominal pain in passed out today at work. She reports that the bleeding at his light blood tinge discharge. This initial assessment/diagnostic orders/clinical plan/treatment(s) is/are subject to change based on patients health status, clinical progression and re- assessment by fellow clinical providers in the ED. Further treatment and workup at subsequent clinical providers discretion. Patient/guardian urged not to elope from the ED as their condition may be serious if not clinically assessed and managed. Initial orders include:
[2020-08-20 17:06] LABS: HCG Qualitative,Urine Positive (Negative)
[2020-08-20 17:08] LABS: Bilirubin,Urine NEG (Negative); Blood,Urine NEG (Negative); Color,Urine Yellow (Yellow); Protein,Urine <15 mg/dL mg/dL (Negative); Urobilinogen,Urine < 2.0 mg/dL (<2.0)
[2020-08-20 17:21] LABS: Bacteria,Urine 1+ /HPF (Negative); Mucus,Urine FEW /HPF; WBC,Urine < 1.0 /HPF (0.0-6.0)
[2020-08-20 17:33] LABS: Basophils # (Auto) 0.1 K/mm3 (0.0-0.1); Basophils % (Auto) 0.9 % (0.0-1.8); Eosinophils # (Auto) 0.1 K/mm3 (0.0-0.4); Eosinophils % (Auto) 1.7 % (0.0-4.3); Hematocrit 38.8 % (30.3-42.9); Lymphocytes # (Auto) 1.9 K/mm3 (1.2-5.4); Lymphocytes % (Auto) 28.6 % (13.4-35.0); Mean Corpuscular HGB Conc 34 % (30-34); Mean Corpuscular Volume 88 fl (79-97); Monocytes # (Auto) 0.4 K/mm3 (0.0-0.8); Monocytes % (Auto) 5.7 % (0.0-7.3); Platelet Count 108 K/mm3 (140-440); Red Blood Count 4.42 M/mm3 (3.65-5.03); Red Cell Distribution Width 13.2 % (13.2-15.2)
[2020-08-20 17:45] LABS: Alanine Aminotransferase 11 units/L (7-56); Albumin 4.1 g/dL (3.9-5); Blood Urea Nitrogen 8 mg/dL (7-17); Calcium 9.1 mg/dL (8.4-10.2); Hemolysis Index 4
[2020-08-20 17:46] LABS: BUN/Creatinine Ratio 11
[2020-08-20] MEDS ORDERED: ACETAMINOPHEN 500 MG TAB PO ONE (19:36)
--- NOTE | 2020-08-20 21:07 | Ultrasound Report ---
US OB <= 14 weeks fetus, US OB transvaginal INDICATION / CLINICAL INFORMATION: Pelvic pain, vaginal bleeding, . TECHNIQUE: Transabdominal and Transvaginal. Color Doppler was formed COMPARISON: None available. FINDINGS: UTERUS: Appears within normal limits. GESTATIONAL SAC: Well-defined oval shape and intrauterine in location. YOLK SAC: No significant abnormality. EMBRYO/FETUS: - [place]-Rump Length = 0.4 cm = 6 weeks 1 days. - Heart Rate, beats per minute (if present) = heart tones are not present on this examination. ADNEXA: Right ovarian simple 3.2 cm cyst. No significant abnormality. FREE FLUID: None. ADDITIONAL FINDINGS: None. IMPRESSION: 1. Single, intrauterine with estimated sonographic age of 6 weeks 1 days. Heart tones are not present which is likely related to early intrauterine . Signer Name: Shyam Mcarthur MD Signed: 08/20/2020 9:02 PM Workstation Name: [id number]
--- NOTE | 2020-08-20 21:07 | Ultrasound Report ---
US OB <= 14 weeks fetus, US OB transvaginal INDICATION / CLINICAL INFORMATION: Pelvic pain, vaginal bleeding, . TECHNIQUE: Transabdominal and Transvaginal. Color Doppler was formed COMPARISON: None available. FINDINGS: UTERUS: Appears within normal limits. GESTATIONAL SAC: Well-defined oval shape and intrauterine in location. YOLK SAC: No significant abnormality. EMBRYO/FETUS: - [place]-Rump Length = 0.4 cm = 6 weeks 1 days. - Heart Rate, beats per minute (if present) = heart tones are not present on this examination. ADNEXA: Right ovarian simple 3.2 cm cyst. No significant abnormality. FREE FLUID: None. ADDITIONAL FINDINGS: None. IMPRESSION: 1. Single, intrauterine with estimated sonographic age of 6 weeks 1 days. Heart tones are not present which is likely related to early intrauterine . Signer Name: Shyam Mcarthur MD Signed: 08/20/2020 9:02 PM Workstation Name: [id number]
--- NOTE | 2020-08-20 21:38 | Emergency Department Report ---
ED Female HPI - General Chief complaint: Abdominal Pain Stated complaint: SICK Source: patient Mode of arrival: Ambulatory Limitations: No Limitations - History of Present Illness Initial comments: Patient is a A0 34-year-old -Vietnamese female with no past medical hi story and who is approximately 6 weeks gestation and who presents to the ED with complaint of acute onset suprapubic pain that radiates to her lower back and vaginal spotting for the last 2 days worse in the last 8 hours. Patient states that she took Tylenol 24 hours ago but the pain was barely controlled with Tylenol. Patient denies fever, chills, nausea, vomiting, vaginal discharge, dysuria, urinary frequency and urgency, dyspareunia, cough, sore throat, nausea and vomiting, chest pain or shortness of breath, diarrhea, change in vision or dizziness. MD Complaint: vaginal bleeding, pelvic pain, other (low back pain) -: Sudden, days(s) (2) Location: suprapubic, other (vaginal) Radiation: non-radiating, suprapubic, other (lower back) Severity scale (0 -10): 4 Quality: cramping, dull Consistency: constant Improves with: none Worsens with: none Are you Now?: Yes (approx 6 weeks gestation) Associated Symptoms: denies other symptoms, vaginal bleeding, abdominal pain (suprapubic), hematuria. denies: vaginal discharge, nausea/vomiting, fever/chills, headaches, loss of appetite, dysuria, seizure, shortness of breath, syncope, weakness - Related Data Sexually active: Yes : 6 Para: 5 A: 0 Previous Rx's Medication Instructions Recorded Last Taken Type Metoclopramide [Reglan] 10 mg PO QID PRN #30 tab 11/05/18 Unknown Rx Ondansetron [Zofran Odt] 4 mg PO Q8HR PRN #20 tab.rapdis 11/09/18 Unknown Rx Metoclopramide [Reglan] 10 mg PO TID PRN #21 tab 11/15/18 Unknown Rx diphenhydrAMINE [Benadryl CAP] 50 mg PO QHS PRN #30 capsule 11/15/18 Unknown Rx Acetaminophen [Non-Aspirin Extra 500 mg PO Q6HR PRN #30 tablet 08/04/19 Unknown Rx Strength] Dian Root [Dain] 250 mg PO QID PRN #30 capsule 08/04/19 Unknown Rx Vit-Fe Fumar-FA [ 1 tab PO QDAY #60 tablet 08/20/20 Unknown Rx Vitamin] Allergies Allergy/AdvReac Type Severity Reaction Status Date / Time No Known Allergies Allergy Verified 11/15/18 16:16 ED Review of Systems ROS: Stated complaint: SICK Other details as noted in HPI Constitutional: denies: chills, fever Eyes: denies: eye pain, eye discharge, vision change ENT: denies: ear pain, throat pain Respiratory: denies: cough, shortness of breath, wheezing Cardiovascular: denies: chest pain, palpitations Endocrine: no symptoms reported Gastrointestinal: abdominal pain (Suprapubic pain). denies: nausea, diarrhea Genitourinary: abnormal menses (Vaginal bleeding). denies: urgency, dysuria, discharge Musculoskeletal: denies: back pain, joint swelling, arthralgia Skin: denies: rash, lesions Neurological: denies: headache, weakness, paresthesias Psychiatric: denies: anxiety, depression Hematological/Lymphatic: denies: easy bleeding, easy bruising ED Past Medical Hx - Past Medical History Previous Medical History?: No Additional medical history: Child x 5 - Surgical History Past Surgical History?: Yes Additional Surgical History: Gallstone removal - Social History Smoking Status: Never Smoker Substance Use Type: None - Medications Home Medications: Home Medications Medication Instructions Recorded Confirmed Last Taken Type Metoclopramide [Reglan] 10 mg PO QID PRN #30 tab 11/05/18 Unknown Rx Ondansetron [Zofran Odt] 4 mg PO Q8HR PRN #20 tab.rapdis 11/09/18 Unknown Rx Metoclopramide [Reglan] 10 mg PO TID PRN #21 tab 11/15/18 Unknown Rx diphenhydrAMINE [Benadryl CAP] 50 mg PO QHS PRN #30 capsule 11/15/18 Unknown Rx Acetaminophen [Non-Aspirin Extra 500 mg PO Q6HR PRN #30 tablet 08/04/19 Unknown Rx Strength] Dian Root [Dian] 250 mg PO QID PRN #30 capsule 08/04/19 Unknown Rx Vit-Fe Fumar-FA [ 1 tab PO QDAY #60 tablet 08/20/20 Unknown Rx Vitamin] ED Physical Exam - General Limitations: No Limitations General appearance: alert, in no apparent distress - Head Head exam: Present: atraumatic, normocephalic, normal inspection - Eye Eye exam: Present: normal appearance, PERRL, EOMI Pupils: Present: normal accommodation - ENT ENT exam: Present: normal exam, normal orophraynx, mucous membranes moist, TM's normal bilaterally, normal external ear exam - Neck Neck exam: Present: normal inspection, full ROM - Respiratory Respiratory exam: Present: normal lung sounds bilaterally. Absent: respiratory distress, wheezes, rales, rhonchi, chest wall tenderness, accessory muscle use, decreased breath sounds - Cardiovascular Cardiovascular Exam: Present: regular rate, normal rhythm, normal heart sounds. Absent: systolic murmur, diastolic murmur, rubs, gallop - GI/Abdominal GI/Abdominal exam: Present: soft, tenderness (Palpable mild suprapubic tenderness), normal bowel sounds. Absent: guarding, rebound, rigid, hyperactive bowel sounds, hypoactive bowel sounds, organomegaly - Bi-manual exam: Present: other (Pelvic exam deferred) - Extremities Exam Extremities exam: Present: normal inspection, full ROM, normal capillary refill - Back Exam Back exam: Present: normal inspection, full ROM. Absent: tenderness, CVA tenderness (R), CVA tenderness (L), muscle spasm, paraspinal tenderness, vertebral tenderness - Neurological Exam Neurological exam: Present: alert, oriented X3, CN II-XII intact, normal gait, reflexes normal - Psychiatric Psychiatric exam: Present: normal affect, normal mood - Skin Skin exam: Present: warm, dry, intact, normal color. Absent: rash ED Course Vital Signs 08/20/20 16:43 Temperature 97.6 F Pulse Rate 63 Respiratory 18 Rate Blood Pressure 106/29 O2 Sat by Pulse 96 Oximetry ED Medical Decision Making - Lab Data Result diagrams: 08/20/20 17:12 08/20/20 17:12 - Radiology Data Radiology results: report reviewed, image reviewed Findings [facility] [address] [place] [address] Ultrasound Report Signed Patient: MINAL MORRIS V MR#: [id number] : 1985 Acct:[id number] Age/Sex: 34 / F ADM Date: 08/20/20 Loc: ED Attending Dr: Ordering Physician: JACK MC Date of Service: 08/20/20 Procedure(s): US OB transvaginal Accession Number(s): [id number] cc: JACK MC US OB <= 14 weeks fetus, US OB transvaginal INDICATION / CLINICAL INFORMATION: Pelvic pain, vaginal bleeding, . TECHNIQUE: Transabdominal and Transvaginal. Color Doppler was formed COMPARISON: None available. FINDINGS: UTERUS: Appears within normal limits. GESTATIONAL SAC: Well-defined oval shape and intrauterine in location. YOLK SAC: No significant abnormality. EMBRYO/FETUS: - [place]-Rump Length = 0.4 cm = 6 weeks 1 days. - Heart Rate, beats per minute (if present) = heart tones are not present on this examination. ADNEXA: Right ovarian simple 3.2 cm cyst. No significant abnormality. FREE FLUID: None. ADDITIONAL FINDINGS: None. IMPRESSION: 1. Single, intrauterine with estimated sonographic age of 6 weeks 1 days. Heart tones are not present which is likely related to early intrauterine . Signer Name: Shyam Mcarthur MD Signed: 08/20/2020 9:02 PM Workstation Name: [id number] Transcribed By: CS Dictated By: Shyam Mcarthur MD Electronically Authenticated By: Shyam Mcarthur MD Signed Date/Time: 08/20/202101 DD/ 99 TD/TT: Findings [facility] [address] [place] [address] Ultrasound Report Signed Patient: MINAL MORRIS V MR#: [id number] : 1985 Acct:[id number] Age/Sex: 34 / F ADM Date: 08/20/20 Loc: ED Attending Dr: Ordering Physician: JACK MC Date of Service: 08/20/20 Procedure(s): US OB <= 14 weeks fetus Accession Number(s): [id number] cc: JACK MC US OB <= 14 weeks fetus, US OB transvaginal INDICATION / CLINICAL INFORMATION: Pelvic pain, vaginal bleeding, . TECHNIQUE: Transabdominal and Transvaginal. Color Doppler was formed COMPARISON: None available. FINDINGS: UTERUS: Appears within normal limits. GESTATIONAL SAC: Well-defined oval shape and intrauterine in location. YOLK SAC: No significant abnormality. EMBRYO/FETUS: - [place]-Rump Length = 0.4 cm = 6 weeks 1 days. - Heart Rate, beats per minute (if present) = heart tones are not present on this examination. ADNEXA: Right ovarian simple 3.2 cm cyst. No significant abnormality. FREE FLUID: None. ADDITIONAL FINDINGS: None. IMPRESSION: 1. Single, intrauterine with estimated sonographic age of 6 weeks 1 days. Heart tones are not present which is likely related to early intrauterine . Signer Name: Shyam Mcarthur MD Signed: 08/20/2020 9:02 PM Workstation Name: [id number] Transcribed By: CS Dictated By: Shyam Mcarthur MD Electronically Authenticated By: Shyam Mcarthur MD Signed Date/Time: 08/20/202101 DD/ 99 TD/TT: - Medical Decision Making This is a A0 34-year-old -Vietnamese female with no past medical history and who is approximately 6 weeks gestation and who presents to the ED with complaint of acute onset suprapubic pain that radiates to her lower back and vaginal spotting for the last 2 days worse in the last 8 hours. Patient states that she took Tylenol 24 hours ago but the pain was barely controlled with Tylenol. In the ED, patient is alert and oriented x3 and is not in distress. Lab test results were reviewed and are all nonactionable including [place] which [place] [id number]. Transvaginal ultrasound showed a single, intrauterine with estimated sonographic age of 6 weeks 1 days. Heart tones are not present which is likely related to early intrauterine . Patient was therefore discharged home and advised to maintain a complete pelvic rest, and take Tylenol as needed for pain and follow-up with the [employer]PUT[employer] physician in 2 to 3 days for reevaluation. Patient was also advised return to the ED immediately if symptoms get worse. - Differential Diagnosis Threatened miscarriage; ectopic; ovarian cyst; subchorionic bleed; UTI Critical care attestation.: If time is entered above; I have spent that time in minutes in the direct care of this critically ill patient, excluding procedure time. ED Disposition Clinical Impression: Threatened miscarriage in early , Abdominal pain during in first trimester Disposition: DC- TO HOME OR SELFCARE Is pt being admited?: No Does the pt Need Aspirin: No Condition: Stable Instructions: Abdominal Pain (ED), Threatened Miscarriage, [id number], Vaginal Bleeding During , First Trimester, [id number], Abdominal Pain During , [id number] Additional Instructions: All lab test results were reviewed and are all nonactionable. Transvaginal ultrasound shows a single live intrauterine of approximately 6 weeks and 1 day. No heart tones were identified during this visit possibly due to the fact that the is still too early. Therefore maintain a complete pelvic rest, take medication for pain, Tylenol, with food, drink plenty of fluids and follow-up with your [employer] physician in 3 to 5 days for reevaluation. Return to the ED immediately if symptoms get worse. Prescriptions: Vit-Fe Fumar-FA [ Vitamin] 1 tab PO QDAY #60 tablet Referrals: HOPE APPLE MD [Staff Physician] - 3-5 Days Time of Disposition: 21:38 Print Language: IRAQI
[2020-08-21 01:39] VITALS: BP 116/80
== END 2020-08-20 21:47 | disposition home or self-care (01) ==
LOC: ED 15:55
DX: O20.0 Threatened abortion (principal); Z79.899 Other long term (current) drug therapy
CPT/HCPCS: 36415; 76801; 76817; 80053; 81001; 81025; 84702; 85025; 86850; 86900; 86901